=== PATIENT | female | born 2000 | race Caucasian/White ===

== ENCOUNTER → 2021-12-25 | Outpatient (CLI) | payer OTHER ==
--- NOTE | 2021-12-25 11:33 | RAD ---
AP, lateral, and oblique views of the right foot were obtained. History: Reason: CHRONIC PAIN LATERAL / Spl. Instructions: / History: Comparison: none. There is no fracture, subluxation or dislocation. No significant degenerative changes, or significant soft tissue swelling seen. The bones of the midfoot are well aligned. Impression: 1. Unremarkable plain film exam of the right foot Electronically signed by: Junior Ng MD (12/25/2021 11:30 AM) [id number]
== END ==
LOC: RAD 11:09
PROVIDERS: ATTEND Physician Assistant Medical
DX: M79.671 Pain in right foot (principal)
CPT/HCPCS: 73630